=== PATIENT | female | born 1990 | race Two or more races ===

== ENCOUNTER 2023-03-08 02:38 | Emergency (ER) | payer MEDICAID, OTHER ==
[~2023-03-08] VITALS: Ht 170.2 cm; Wt 77.0 kg
[2023-03-08 05:00] VITALS: BP 109/77
[2023-03-08] MEDS ORDERED: NALO4SPR BOTHNSTRLS (05:30)
== END 2023-03-08 07:35 | disposition home or self-care (01) ==
LOC: ER 02:38
DX: T40.601A Poisoning by unspecified narcotics, accidental (unintentional), initial encounter (principal); Z68.26 Body mass index [BMI] 26.0-26.9, adult; Y92.9 Unspecified place or not applicable
CPT/HCPCS: 99283